=== PATIENT | female | born 2000 | race Hispanic/Latino ===

== ENCOUNTER 2018-07-07 02:58 | Emergency (ER) | payer OTHER ==
[~2018-07-07] VITALS: Ht 160 cm; Wt 54.4 kg
[2018-07-07] MEDS ORDERED: ONDANSETRON HCL 4 MG ORAL DISINTEGRATING TAB PO ONE (04:00)
[2018-07-07] MEDS ORDERED: ACETAMINOPHEN 325 MG/10 ML UDC PO ONE (04:00)
[2018-07-07] MEDS ORDERED: CEFTRIAXONE SOD 1 GM VIAL IM ONE (04:00)
--- NOTE | 2018-07-07 05:15 | Diagnostic Imaging Report ---
EXAMINATION: CHEST SINGLE (PORTABLE) INDICATION: Chest pain, look for CHF, enlarge Mediastinum COMPARISON: None FINDINGS: AP view TUBES and LINES: None. LUNGS: No consolidations. Mild peribronchial cuffing and interstitial prominence. PLEURA: No pleural effusion or pneumothorax. HEART AND MEDIASTINUM: The cardiomediastinal silhouette is unremarkable. BONES AND SOFT TISSUES: No acute osseous lesion. Soft tissues are unremarkable. UPPER ABDOMEN: No free air under the diaphragm. IMPRESSION: Findings which is seen with viral/atypical infection or reactive airways disease. No consolidative pneumonia. Signed by: DR. Roshan Irving MD on 07/07/2018 5:12 AM
[2018-07-07 05:46] VITALS: BP 118/89
== END 2018-07-07 05:48 | disposition home or self-care (01) ==
LOC: ER 02:58
DX: R50.9 Fever, unspecified (principal); R05 Cough; B34.9 Viral infection, unspecified; Q99.8 Other specified chromosome abnormalities
CPT/HCPCS: 71045; 99283; J0696; Q0162